=== PATIENT | female | born 1950 | race Caucasian/White ===

== ENCOUNTER → 2023-07-28 | Emergency (ER) | payer OTHER ==
[~2023-07-28] MED LIST: CEFTRIAXONE 1000 MG/VIAL ONE; CLINDAMYCIN 900MG/D5W 900 MG/50 ML IVPB IV ONE; FENTANYL CITR 100 MCG/2 ML ONE; KETOROLAC 30 MG/ML INJ ONE; NA CHLORIDE 0.9% 1,000 ML ONE; ONDANSETRON 4 MG/2 ML VIAL ONE; dexAMETHasone 10 MG/ML VIAL ONE
[2023-07-28 13:31] LABS: Absolute Lymphocytes (CBC) 0.7 K/uL (0.7-4.9); Hematocrit 36.5 % (36.0-45.0); Lymphocytes % 8.6 % (15.3-44.8); MCV 92.8 fL (80-100); MPV 7.5 fL (7.6-11.3); Platelets 184 thou/uL (152-406); RBC Red Blood Cell Count 3.93 M/uL (3.86-4.86)
[2023-07-28 13:41] LABS: Albumin 3.5 g/dL (3.4-5.0); Bilirubin Total 0.7 mg/dL (0.2-1.0); Potassium 3.9 mEq/L (3.5-5.1); Protein, Total 8.4 g/dL (6.4-8.2)
--- NOTE | 2023-07-28 14:33 | RAD REPORT ---
EXAM DESCRIPTION: CT - Soft Tissue Neck W/Contr - 07/28/2023 2:08 pm CLINICAL HISTORY: Neck pain with sore throat COMPARISON: None. TECHNIQUE: Computed axial tomography of the neck was obtained. 50 cc Isovue 300 was administered in travenously. Coronal and sagittal reconstruction was performed. All CT scans are performed using dose optimization technique as appropriate and may include automated exposure control or mA/KV adjustment according to patient size. FINDINGS: An 11 millimeter low-density area with an enhancing rim is present within the left floor o f mouth posterior to the left mandible. This has the appearance of an abscess. Remainder of the pharynx, larynx and subglottic trachea are unremarkable. Small lymph nodes are present within the right parotid gland. Right submandibular gland is not visualized. Edema surrounds the left submandibular gland. Thyroid gland unremarkable. Spondylosis cervical spine No fluid within the sinuses/mastoids IMPRESSION: A 11 millimeter abscess suspected left floor of mouth Edema surrounds the left submandibular gland which may indicate sialadenitis
--- NOTE | 2023-07-28 15:12 | ER ---
Nurse's Notes [facility] Name: Lorraine Isaacs Age: 73 yrs Sex: Female : 1950 Arrival Date: 07/28/2023 Time: 12:16 Bed 10 Private MD: Diagnosis: Sialoadenitis, unspecified-11 mm abscess left floor of mouth Presentation: 07/28 12:43 Chief complaint: Patient states: she has dental implants, and started noticing swelling ap3 and "puss in my mouth" on Tuesday07/26/2023 near the implants. Patient states this has happened before, and antibiotics helped. Patient was evaluated at an urgent care on day of onset and received amox/clav [id number]. Coronavirus screen: At this time, the client does not indicate any symptoms associated with coronavirus-19. Ebola Screen: No symptoms or risks identified at this time. Initial Sepsis Screen: Does the patient meet any 2 criteria? No. Patient's initial sepsis screen is negative. Does the patient have a suspected source of infection? Yes: Skin breakdown/wound. Risk Assessment: Do you want to hurt yourself or someone else? Patient reports no desire to harm self or others. Onset of symptoms was July 26, 2023. 12:43 Method Of Arrival: Ambulatory ap3 12:43 Acuity: DOMINIQUE 3 ap3 Triage Assessment: 12:46 General: Appears Behavior is calm, cooperative, appropriate for age. Pain: Complains of ap3 pain in mouth Pain began gradually, 2-3 days ago. Neuro: Level of Consciousness is awake, alert, obeys commands, Oriented to person, place, time, situation, Appropriate for age. Cardiovascular: Patient's skin is warm and dry. Respiratory: Airway is patent Respiratory effort is even, unlabored, Respiratory pattern is regular, symmetrical. Historical: - Allergies: 12:45 No Known Allergies; ap3 - PMHx: 12:45 Hypertensive disorder; ap3 - Immunization history:: Client reports receiving the 2nd dose of the Covid vaccine, Flu vaccine is up to date. - Social history:: Smoking status: Patient denies any tobacco usage or history of. Screenin:46 [facility] ED Fall Risk Assessment (Adult) History of falling in the last 3 months, ap3 including since admission No falls in past 3 months (0 pts). Abuse screen: Denies threats or abuse. Nutritional screening: No deficits noted. Tuberculosis screening: No symptoms or risk factors identified. Assessment: 12:57 General: Appears in no apparent distress. comfortable, Behavior is calm, cooperative, ld1 appropriate for age. Pain: Denies pain. Neuro: Level of Consciousness is awake, alert, obeys commands, Oriented to person, place, time, situation. Cardiovascular: Capillary refill < 3 seconds Patient's skin is warm and dry. Respiratory: Airway is patent Respiratory effort is even, unlabored. GI: Abdomen is flat, non-distended. : No signs and/or symptoms were reported regarding the genitourinary system. EENT: No signs and/or symptoms were reported regarding the EENT system. Derm: No signs and/or symptoms reported regarding the dermatologic system. Musculoskeletal: No signs and/or symptoms reported regarding the musculoskeletal system. Vital Signs: 12:43 BP 125 / 68; Pulse 59; Resp 17; Temp 98.1; Pulse Ox 100% ; Weight 71.67 kg; Height 5 ap3 ft. 5 in. ; Pain 6/10; 12:43 Body Mass Index 26.29 (71.67 kg, 165.1 cm) ap3 12:43 Pain Scale: Adult ap3 ED Course: 12:23 Patient arrived in ED. mg5 12:40 Presley Haji MD is Attending Physician. the [facility] 12:45 Triage completed. ap3 12:47 Arm band placed on right wrist. ap3 12:57 Julia Bearden, RN is Primary Nurse. ld1 12:57 Patient has correct armband on for positive identification. Placed in gown. Bed in low ld1 position. Call light in reach. Side rails up X2. Pulse ox on. NIBP on. Notified ED physician of. Door closed. Noise minimized. Warm blanket given. 12:57 No provider procedures requiring assistance completed. ld1 13:19 Comprehensive Metabolic Panel Sent. bc6 13:19 CBC with Diff Sent. bc6 13:19 Inserted saline lock: 20 gauge in right antecubital area, using aseptic technique. bc6 Blood collected. 14:08 Soft Tissue Neck W/Contr CT In Process Unspecified. EDMS 15:10 Kala Sabillon MD is Referral Physician. jean 15:11 Referral Physician role handed off by Kala Sabillon MD jean 15:11 Kala Sabillon MD is Referral Physician. jean 15:19 IV discontinued, intact, bleeding controlled, No redness/swelling at site. ld1 Administered Medications: 13:19 Drug: NS 0.9% IV 1000 ml IV at 1 bolus Per protocol; 1000 mL bolus Route: IV; Rate: 1 ld1 bolus; Site: right antecubital; 13:19 Drug: Clindamycin IVPB 900 mg IVPB once over 30 mins; (mix in 50 mL) Route: IVPB; ld1 Infused Over: 30 mins; Site: right antecubital; 13:19 Drug: fentaNYL (PF) IVP 25 mcg IVP once Route: IVP; Site: right antecubital; ld1 13:19 Drug: Ondansetron IVP 4 mg IVP once; over 2 minutes Route: IVP; Site: right antecubital;ld1 13:19 Drug: Rocephin IV 1 grams IV at per protocol once; Given slow IV push per pharmacy ld1 instructions Route: IV; Rate: per protocol; Site: right antecubital; 13:19 Drug: Ketorolac IVP 15 mg IVP once Route: IVP; Site: right antecubital; ld1 15:19 Drug: Decadron - Dexamethasone IVP 10 mg IVP once Route: IVP; Site: right antecubital; ld1 Medication: 12:57 VIS not applicable for this client. ld1 Outcome: 15:11 Discharge ordered by . jean 15:19 Discharged to home ambulatory, ld1 15:19 Condition: stable 15:19 Discharge instructions given to patient, Instructed on discharge instructions, follow up and referral plans. medication usage, Demonstrated understanding of instructions, follow-up care, medications, Prescriptions given X 2, 15:19 Patient left the ED. ld1 Signatures: Dispatcher [employer] EDMS Presley Haji MD MD cha Prokisch, Amanda, RN RN ap3 Julia Bearden RN RN ld1 Tamar Horn 6 Amanda Garcia mg5
--- NOTE | 2023-07-28 15:12 | EDPHYS ---
Physician Documentation [facility] Name: Lorraine Isaacs Age: 73 yrs Sex: Female : 1950 Arrival Date: 07/28/2023 Time: 12:16 Bed 10 Private MD: LEROY Physician Presley Haji HPI: 07/28 13:46 This 73 yrs old Female presents to ER via Ambulatory with complaints of Mouth Swelling, jean Neck Swelling. 13:46 The patient presents with pain, redness, swelling. The problem is located in the tongue jean and chin. Onset: The symptoms/episode began/occurred 3 day(s) ago. Duration: The symptoms are continuous, and are steadily getting worse. Modifying factors: The symptoms are alleviated by nothing, the symptoms are aggravated by chewing. Associated signs and symptoms: The patient has no apparent associated signs or symptoms. Severity of symptoms: At their worst the symptoms were mild, moderate, in the emergency department the symptoms are unchanged. The patient has not experienced similar symptoms in the past. Historical: - Allergies: 12:45 No Known Allergies; ap3 - PMHx: 12:45 Hypertensive disorder; ap3 - Immunization history:: Client reports receiving the 2nd dose of the Covid vaccine, Flu vaccine is up to date. - Social history:: Smoking status: Patient denies any tobacco usage or history of. ROS: 13:47 Constitutional: Negative for fever, chills, and weight loss, Eyes: Negative for injury, jean pain, redness, and discharge, Neck: Negative for injury, pain, and swelling, Cardiovascular: Negative for chest pain, palpitations, and edema, Respiratory: Negative for shortness of breath, cough, wheezing, and pleuritic chest pain, Abdomen/GI: Negative for abdominal pain, nausea, vomiting, diarrhea, and constipation, Back: Negative for injury and pain, : Negative for injury, bleeding, discharge, and swelling, MS/Extremity: Negative for injury and deformity, Skin: Negative for injury, rash, and discoloration, Neuro: Negative for headache, weakness, numbness, tingling, and seizure, Psych: Negative for depression, anxiety, suicide ideation, homicidal ideation, and hallucinations, Allergy/Immunology: Negative for hives, rash, and allergies, Endocrine: Negative for neck swelling, polydipsia, polyuria, polyphagia, and marked weight changes, Hematologic/Lymphatic: Negative for swollen nodes, abnormal bleeding, and unusual bruising, 13:47 ENT: Positive for difficulty swallowing, sore throat, 15:10 ENT: Negative for jean Exam: 13:47 Constitutional: This is a well developed, well nourished patient who is awake, alert, jean and in no acute distress. Head/Face: Normocephalic, atraumatic. Eyes: Pupils equal round and reactive to light, extra-ocular motions intact. Lids and lashes normal. Conjunctiva and sclera are non-icteric and not injected. Cornea within normal limits. Periorbital areas with no swelling, redness, or edema. Neck: Trachea midline, no thyromegaly or masses palpated, and no cervical lymphadenopathy. Supple, full range of motion without nuchal rigidity, or vertebral point tenderness. No Meningismus. Chest/axilla: Normal chest wall appearance and motion. Nontender with no deformity. No lesions are appreciated. Cardiovascular: Regular rate and rhythm with a normal S1 and S2. No gallops, murmurs, or rubs. Normal PMI, no JVD. No pulse deficits. Respiratory: Lungs have equal breath sounds bilaterally, clear to auscultation and percussion. No rales, rhonchi or wheezes noted. No increased work of breathing, no retractions or nasal flaring. Abdomen/GI: Soft, non-tender, with normal bowel sounds. No distension or tympany. No guarding or rebound. No evidence of tenderness throughout. Back: No spinal tenderness. No costovertebral tenderness. Full range of motion. Female : Normal external genitalia. Skin: Warm, dry with normal turgor. Normal color with no rashes, no lesions, and no evidence of cellulitis. MS/ Extremity: Pulses equal, no cyanosis. Neurovascular intact. Full, normal range of motion. Neuro: Awake and alert, GCS 15, oriented to person, place, time, and situation. Cranial nerves II-XII grossly intact. Motor strength 5/5 in all extremities. Sensory grossly intact. Cerebellar exam normal. Normal gait. Psych: Awake, alert, with orientation to person, place and time. Behavior, mood, and affect are within normal limits. 13:47 ENT: Mouth: Oral mucosa: pink and intact, moist, Gums: normal with healthy appearance, left submandibular swelling, obstruction, 15:10 ENT: Mouth: no trismus, [facility] Vital Signs: 12:43 BP 125 / 68; Pulse 59; Resp 17; Temp 98.1; Pulse Ox 100% ; Weight 71.67 kg; Height 5 ap3 ft. 5 in. ; Pain 6/10; 12:43 Body Mass Index 26.29 (71.67 kg, 165.1 cm) ap3 12:43 Pain Scale: Adult ap3 MDM: 12:40 Patient medically screened. jean 14:03 Differential diagnosis: dental caries, dental abscess, gingivostomatitis. Data jean reviewed: vital signs, nurses notes, lab test result(s), radiologic studies, CT scan. Consideration of Admission/Observation Escalation of care including admission/observation considered. I considered the following discharge prescriptions or medication management in the emergency department Medications were administered in the Emergency Department. See MAR. Test considered but Not performed: Ultrasound no usg. Historians other than the Patient: Spouse/Significant Other: well informed. Care significantly affected by the following chronic conditions: Hypertension. Counseling: I had a detailed discussion with the patient and/or guardian regarding the historical points, exam findings, and any diagnostic results supporting the discharge/admit diagnosis, lab results, radiology results, the need for outpatient follow up, for definitive care, an ENT specialist, a family practitioner. 07/28 13:02 Order name: CBC with Diff; Complete Time: 13:45 [facility] 07/28 13:02 Order name: Comprehensive Metabolic Panel; Complete Time: 13:45 [facility] 07/28 13:45 Order name: Soft Tissue Neck W/Contr CT jean Administered Medications: 13:19 Drug: NS 0.9% IV 1000 ml IV at 1 bolus Per protocol; 1000 mL bolus Route: IV; Rate: 1 ld1 bolus; Site: right antecubital; 13:19 Drug: Clindamycin IVPB 900 mg IVPB once over 30 mins; (mix in 50 mL) Route: IVPB; ld1 Infused Over: 30 mins; Site: right antecubital; 13:19 Drug: fentaNYL (PF) IVP 25 mcg IVP once Route: IVP; Site: right antecubital; ld1 13:19 Drug: Ondansetron IVP 4 mg IVP once; over 2 minutes Route: IVP; Site: right antecubital;ld1 13:19 Drug: Rocephin IV 1 grams IV at per protocol once; Given slow IV push per pharmacy ld1 instructions Route: IV; Rate: per protocol; Site: right antecubital; 13:19 Drug: Ketorolac IVP 15 mg IVP once Route: IVP; Site: right antecubital; ld1 15:19 Drug: Decadron - Dexamethasone IVP 10 mg IVP once Route: IVP; Site: right antecubital; ld1 Disposition Summary: 07/28/23 15:11 Discharge Ordered Notes: Location: Home jean Problem: new jean Symptoms: have improved jean Condition: Stable jean Diagnosis - Sialoadenitis, unspecified - 11 mm abscess left floor of mouth jean Followup: jean - With: Private Physician - When: 2 - 3 days - Reason: Recheck today's complaints, Continuance of care, Re-evaluation by your physician Followup: jean - With: Kala Sabillon MD - When: Tomorrow - Reason: Recheck today's complaints, Re-evaluation by your physician Followup: jean - With: Kala Sabillon MD - When: Tomorrow - Reason: Recheck today's complaints, Re-evaluation by your physician Discharge Instructions: - Discharge Summary Sheet jean - Salivary Gland Infection jean - Dental Abscess, [id number] jean - Salivary Stone [facility] Forms: - Medication Reconciliation Form [facility] - Thank You Letter [facility] - Antibiotic Education jean - Prescription Opioid Use jean - Patient Portal Instructions [facility] - Leadership Thank You Letter [facility] Prescriptions: - acetaminophen-codeine 300-30 mg Oral tablet - take 2 tablet ORAL route every 6 hours as needed for pain; 20 tablet; Refills: [facility] 0, Product Selection Permitted - Clindamycin HCl 300 mg Oral Capsule - take 1 capsule ORAL route every 6 hours for 10 days; 40 capsule; Refills: 0, jean Product Selection Permitted Signatures: Dispatcher [employer] Presley Field MD MD cha Prokisch, Amanda, RN RN ap3 Julia Bearden RN RN ld1
[2023-07-28 17:06] VITALS: BP 125/68; TEMP 98.1; O2SAT 100
== END ==
LOC: ER 12:16
DX: K12.2 Cellulitis and abscess of mouth (principal); K11.20 Sialoadenitis, unspecified; I10 Essential (primary) hypertension
CPT/HCPCS: 85025; 36415; 80053; 70491; 96375; 96374; 99284; Q9967; J3010; J1100; J2405; J7030; J0696